=== PATIENT | male | born 1970 | race Caucasian/White ===

== ENCOUNTER 2021-03-03 15:24 | Emergency (ER) | payer OTHER ==
[~2021-03-03] VITALS: Ht 175.3 cm; Wt 57.6 kg
[2021-03-03 16:00] LABS: ABSOLUTE NEUTROPHILS 3.3 thou/uL (1.4-8.2); BASOPHILS 0.9 % (0.0-2.0); EOSINOPHILS 0.9 % (0.0-3.0); HEMATOCRIT 39.8 % (42.0-52.0); HEMOGLOBIN 13.2 gm/dL (14.0-18.0); LYMPHOCYTES 24.9 % (24.0-44.0); MCH 33.9 pg (26.0-34.0); MCHC 33.1 g/dL (28.0-37.0); MCV 102.2 fL (80.0-100.0); MONOCYTES 10.4 % (1.0-8.0); PLATELET COUNT 185 thou/uL (150-400); POLYS 62.9 % (36.0-66.0); RDW 18.3 % (10.5-14.5); WBC 5.2 thou/uL (4.0-11.0)
[2021-03-03 16:10] LABS: ANION GAP 8 mmol/L (7-16); BUN 14 mg/dL (7-18); CALCIUM 8.5 mg/dL (8.5-10.1); CHLORIDE 99 mmol/L (98-107); CO2 25 mmol/L (21-32); CREATININE 1.1 mg/dL (0.7-1.3); GLUCOSE 112 mg/dL (74-106); POTASSIUM 3.6 mmol/L (3.5-5.1); SODIUM 132 mmol/L (136-145)
[2021-03-03 16:21] LABS: ALBUMIN 2.7 g/dL (3.4-5.0); DIGOXIN 0.3 ng/mL (0.9-2.0); MAGNESIUM 1.6 mg/dL (1.8-2.4); SGOT 120 U/L (15-37); SGPT 86 U/L (16-63); TOTAL BILIRUBIN 2.6 mg/dL (0.2-1.0); TOTAL PROTEIN 9.1 g/dL (6.4-8.2); TROPONIN-I <0.06 ng/mL (<0.06)
[2021-03-03] MEDS ORDERED: BIKTARVY 50-201 EACH PO (17:18)
[2021-03-03] MEDS ORDERED: TOPROL XL25 MG PO (17:18)
[2021-03-03] MEDS ORDERED: DIGITEK125 MC2 PO (17:19)
[2021-03-03] MEDS ORDERED: FUROSEMIDE 20 M20 MG PO (17:20)
[2021-03-03] MEDS ORDERED: SPIRONOLACTONE25 MG PO (17:20)
[2021-03-03] MEDS ORDERED: DORYX MPC120 MG PO (17:21)
[2021-03-03] MEDS ORDERED: DICLOFENAC SOD100 G1 TOP (18:19)
[2021-03-03 18:33] VITALS: BP 119/82
== END 2021-03-03 18:34 | disposition home or self-care (01) ==
LOC: ER 15:24
PROVIDERS: Physician Assistant
DX: G62.9 Polyneuropathy, unspecified (principal); I87.2 Venous insufficiency (chronic) (peripheral); J44.9 Chronic obstructive pulmonary disease, unspecified; I50.9 Heart failure, unspecified; Z21 Asymptomatic human immunodeficiency virus [HIV] infection status; Z88.0 Allergy status to penicillin